=== PATIENT | male | born 1940 | race Caucasian/White ===

== ENCOUNTER → 2017-11-14 | Outpatient (CLI) | payer MEDICARE, OTHER ==
[~2017-11-14] MED LIST: AMLO10TA4 PO; ASPI-1197 PO; CARB200T PO; CARV12.580 PO; CHOL200016 PO; CLOP75TA32 PO; DONE5TAB2 PO; FEXO1TAB5 PO; FLUT16H NASAL; FOLI0.4T2 PO; IRON1CAP30 PO; LOSA100T2 PO; MELA3TAB10 PO; NITR0.4T SL; PRAM0.25 PO; TAMS-1 PO; UBID10CA6 PO
== END | disposition home or self-care (01) ==
LOC: RAH 09:37
PROVIDERS: ATTEND Family Medicine
DX: M50.322 Other cervical disc degeneration at C5-C6 level (principal); M50.323 Other cervical disc degeneration at C6-C7 level; I71.4 Abdominal aortic aneurysm, without rupture; M48.02 Spinal stenosis, cervical region
CPT/HCPCS: 72141; 76775

== ENCOUNTER 2018-11-21 09:35 | Emergency (ER) | payer MEDICARE, OTHER ==
[~2018-11-21 09:35] MED LIST changes: -CHOL200016 PO; +CHOL200059 PO; -DONE5TAB2 PO; +DONE5TAB3 PO
== END 2018-11-21 11:39 | disposition home or self-care (01) ==
LOC: EDH 09:35
DX: S02.82XA Fracture of other specified skull and facial bones, left side, initial encounter for closed fracture (principal); I10 Essential (primary) hypertension; M19.90 Unspecified osteoarthritis, unspecified site; E78.5 Hyperlipidemia, unspecified; I25.10 Atherosclerotic heart disease of native coronary artery without angina pectoris; Z88.6 Allergy status to analgesic agent; Z91.013 Allergy to seafood; Z88.8 Allergy status to other drugs, medicaments and biological substances; Z98.890 Other specified postprocedural states; Z87.891 Personal history of nicotine dependence; W01.0XXA Fall on same level from slipping, tripping and stumbling without subsequent striking against object, initial encounter; Y93.01 Activity, walking, marching and hiking; Y92.89 Other specified places as the place of occurrence of the external cause; Y99.8 Other external cause status
CPT/HCPCS: 70450; 70486; 72125

== ENCOUNTER 2018-12-12 10:43 | Emergency (ER) | payer MEDICARE, OTHER ==
[2018-12-12 11:51] LABS: BASOPHILS % (AUTO) 0.7 % (0.0-5.0); EOSINOPHILS % (AUTO) 1.8 % (0.0-8.0); HEMATOCRIT 39.9 % (42-54); LYMPHOCYTES % (AUTO) 16.1 % (21.0-51.0); MEAN CORPUSCULAR HEMOGLOBIN 31.3 pg (27.0-33.0); MEAN CORPUSCULAR HGB CONC 32.9 g/dL (32.0-36.0); MEAN CORPUSCULAR VOLUME 95.2 fL (79-99); NEUTROPHILS % (AUTO) 71.4 % (40.0-77.0); PLATELET COUNT (AUTO) 204 K/uL (130-400); RED BLOOD CELL COUNT(AUTO) 4.19 MIL/uL (4.50-6.20); RED CELL DISTRIBUTION WIDTH 12.2 % (11.0-15.5); WHITE BLOOD COUNT (AUTO) 6.8 K/uL (4.8-10.8)
[2018-12-12 11:57] LABS: CREATININE 0.8 mg/dL (0.5-1.5); POTASSIUM 3.7 mmol/L (3.5-5.1)
[2018-12-12 12:00] LABS: PARTIAL THROMBOPLASTIN TIME 28.6 SEC (26.3-35.5); PROTHROMBIN TIME 10.5 SEC (9.6-11.6)
[2018-12-12 12:01] LABS: ALBUMIN 3.9 g/dL (3.5-5.0); BILIRUBIN,TOTAL 0.2 mg/dL (0.2-1.0); CRP QUANTITATIVE 6.9 mg/L (0.00-9.0); TOTAL PROTEIN, SERUM 7.6 g/dL (6.0-8.3)
[2018-12-12] MEDS ORDERED: GUAIFENESIN SUGAR-FREE 100 MG/5 ML UDCUP ONE (12:23)
[2018-12-12] MEDS ORDERED: GUAIFENESIN SUGAR-FREE 100 MG/5 ML UDCUP PO SCH (12:30)
[2018-12-12] MEDS ORDERED: CEFDINIR 250MG/5ML 60ML BOTTLE PO SCH (12:30)
[2018-12-12 12:53] LABS: ERYTHROCYTE SEDIMENTATION RATE 12 MM/HR (0-20)
== END 2018-12-12 13:35 | disposition home or self-care (01) ==
LOC: EDH 10:43
DX: S02.30XA Fracture of orbital floor, unspecified side, initial encounter for closed fracture (principal); J01.00 Acute maxillary sinusitis, unspecified; J32.0 Chronic maxillary sinusitis; M19.90 Unspecified osteoarthritis, unspecified site; I25.10 Atherosclerotic heart disease of native coronary artery without angina pectoris; I10 Essential (primary) hypertension; E78.5 Hyperlipidemia, unspecified; Z96.649 Presence of unspecified artificial hip joint; X58.XXXA Exposure to other specified factors, initial encounter; Y93.89 Activity, other specified; Y92.89 Other specified places as the place of occurrence of the external cause; Y99.8 Other external cause status
CPT/HCPCS: 36415; 70450; 70486; 80053; 85025; 85610; 85651; 85730; 86140

== ENCOUNTER 2020-12-12 08:35 | Day surgery (SDC) | payer OTHER ==
[~2020-12-12] VITALS: Ht 177.8 cm; Wt 72.6 kg
[~2020-12-12 08:35] MED LIST changes: -AMLO10TA4 PO; -ASPI-1197 PO; -CARB200T PO; -CARV12.580 PO; +CARV3.12 PO; -CHOL200059 PO; +CLOP75TA14 PO; -CLOP75TA32 PO; +DOCU-116 PO; +DONE10TA8 PO; -DONE5TAB3 PO; -FEXO1TAB5 PO; +FINA5TAB41 PO; -FLUT16H NASAL; -FOLI0.4T2 PO; +FURO20TA6 PO; -IRON1CAP30 PO; +LAMO200T10 PO; -LOSA100T2 PO; -MELA3TAB10 PO; +MEMA10TA11 PO; +MIRT15TA6 PO; -NITR0.4T SL; +PANT40TA55 PO; -PRAM0.25 PO; +PRAV40TA3 PO; +SODIUM CHLORIDE 0.9% 1000ML 1,000 ML IV ONE; -UBID10CA6 PO
[2020-12-12 10:34] VITALS: BP 141/71
[2020-12-12] MEDS ORDERED: PROPOFOL 10 MG/ML 20ML VIAL IV ONE (12:15)
[2020-12-12 12:25] VITALS: BP 109/46
[2020-12-12 12:30] VITALS: BP 123/57
[2020-12-12 12:35] VITALS: BP 129/60
[2020-12-12 12:40] VITALS: BP 127/55
== END 2020-12-12 13:17 | disposition home or self-care (01) ==
LOC: DAH 08:35 → EDSTATUS 12:51 → DAH 13:17
PROVIDERS: ATTEND Internal Medicine Gastroenterology
DX: D50.9 Iron deficiency anemia, unspecified (principal); K63.5 Polyp of colon; K64.8 Other hemorrhoids; K29.70 Gastritis, unspecified, without bleeding; K59.00 Constipation, unspecified; D13.1 Benign neoplasm of stomach; K57.30 Diverticulosis of large intestine without perforation or abscess without bleeding; K55.20 Angiodysplasia of colon without hemorrhage; Z86.010 Personal history of colon polyps; I10 Essential (primary) hypertension; E78.5 Hyperlipidemia, unspecified; M19.90 Unspecified osteoarthritis, unspecified site; F31.9 Bipolar disorder, unspecified; I25.10 Atherosclerotic heart disease of native coronary artery without angina pectoris; Z96.651 Presence of right artificial knee joint; Z98.890 Other specified postprocedural states; Z79.82 Long term (current) use of aspirin; Z79.899 Other long term (current) drug therapy; Z79.01 Long term (current) use of anticoagulants; Z20.828 Contact with and (suspected) exposure to other viral communicable diseases
CPT/HCPCS: 45378; A4215; A4221; A4222; A4223; A4606; A4620; A4663; C9803; J2704; J7030; U0003

== ENCOUNTER 2021-11-28 16:12 | Emergency (ER) | payer OTHER ==
[~2021-11-28] VITALS: Ht 175.3 cm; Wt 81.6 kg
[~2021-11-28 16:12] MED LIST changes: +MIRT-22 PO; -MIRT15TA6 PO; -SODIUM CHLORIDE 0.9% 1000ML 1,000 ML IV ONE
[2021-11-28 21:09] LABS: BASOPHILS % (AUTO) 0.6 % (0.0-5.0); EOSINOPHILS % (AUTO) 6.5 % (0.0-8.0); HEMATOCRIT 37.3 % (42-54); LYMPHOCYTES % (AUTO) 20.9 % (21.0-51.0); MEAN CORPUSCULAR HEMOGLOBIN 29.9 pg (27.0-33.0); MEAN CORPUSCULAR HGB CONC 31.6 g/dL (32.0-36.0); MEAN CORPUSCULAR VOLUME 94.7 fL (79-99); MONOCYTES % (AUTO) 11.2 % (3.0-13.0); NEUTROPHILS % (AUTO) 60.6 % (40.0-77.0); PLATELET COUNT (AUTO) 173 K/uL (130-400); RED BLOOD CELL COUNT(AUTO) 3.94 MIL/uL (4.50-6.20); RED CELL DISTRIBUTION WIDTH 13.4 % (11.0-15.5); WHITE BLOOD COUNT (AUTO) 4.7 K/uL (4.8-10.8)
[2021-11-28 21:34] LABS: ALBUMIN 3.9 g/dL (3.5-5.0); BILIRUBIN,TOTAL 0.2 mg/dL (0.2-1.0); TOTAL PROTEIN, SERUM 7.8 g/dL (6.0-8.3)
[2021-11-28 22:23] VITALS: BP 147/68
[2021-11-28 22:37] LABS: APPEARANCE,URINE Clear (CLEAR); BILIRUBIN,URINE Negative (NEGATIVE); COLOR,URINE Yellow (YELLOW); GLUCOSE, URINE (UA) Negative (NEGATIVE); KETONES,URINE Negative (NEGATIVE); LEUKOCYTE ESTERASE ,URINE Negative (NEGATIVE); NITRATE,URINE Negative (NEGATIVE); OCCULT BLOOD,URINE Negative (NEGATIVE); PH,URINE 5.5 (5.0-8.0); PROTEIN,URINE Negative (NEGATIVE); UROBILINOGEN,URINE 0.2 mg/dL (0.2-1.0)
[2021-11-28 23:17] LABS: INFLUENZA TYPE A NEGATIVE FOR TYPE A (NEG); INFLUENZA TYPE B NEGATIVE FOR TYPE B (NEG)
== END 2021-11-28 23:50 | disposition home or self-care (01) ==
LOC: EDH 16:12
DX: U07.1 COVID-19 (principal); I11.0 Hypertensive heart disease with heart failure; I50.9 Heart failure, unspecified; E11.9 Type 2 diabetes mellitus without complications; J44.9 Chronic obstructive pulmonary disease, unspecified; E78.00 Pure hypercholesterolemia, unspecified; I25.10 Atherosclerotic heart disease of native coronary artery without angina pectoris; F31.9 Bipolar disorder, unspecified; Z98.890 Other specified postprocedural states; Z95.0 Presence of cardiac pacemaker; Z96.659 Presence of unspecified artificial knee joint; Z96.649 Presence of unspecified artificial hip joint; Z88.5 Allergy status to narcotic agent; Z88.8 Allergy status to other drugs, medicaments and biological substances; Z88.1 Allergy status to other antibiotic agents; Z91.013 Allergy to seafood; Z79.899 Other long term (current) drug therapy
CPT/HCPCS: 36415; 71045; 80053; 81003; 82150; 82550; 83690; 84484; 85025; 87635; 87804 ×2; 93005; 99285; C9803

== ENCOUNTER 2022-02-19 15:04 | Inpatient (IN) | payer OTHER ==
[~2022-02-19] VITALS: Ht 170.2 cm; Wt 79.2 kg
[2022-02-19 16:26] LABS: BASOPHILS % (AUTO) 0.6 % (0.0-5.0); EOSINOPHILS % (AUTO) 1.8 % (0.0-8.0); HEMATOCRIT 25.9 % (42-54); LYMPHOCYTES % (AUTO) 9.4 % (21.0-51.0); MEAN CORPUSCULAR HGB CONC 31.7 g/dL (32.0-36.0); MEAN CORPUSCULAR VOLUME 94.9 fL (79-99); MONOCYTES % (AUTO) 10.5 % (3.0-13.0); NEUTROPHILS % (AUTO) 77.4 % (40.0-77.0); PLATELET COUNT (AUTO) 232 K/uL (130-400); RED BLOOD CELL COUNT(AUTO) 2.73 MIL/uL (4.50-6.20); RED CELL DISTRIBUTION WIDTH 16.1 % (11.0-15.5); WHITE BLOOD COUNT (AUTO) 7.9 K/uL (4.8-10.8)
[2022-02-19 16:35] LABS: CREATININE 1.2 mg/dL (0.5-1.5); POTASSIUM 3.9 mmol/L (3.5-5.1)
[2022-02-19 16:42] LABS: ALBUMIN 3.2 g/dL (3.5-5.0); BILIRUBIN,TOTAL 0.5 mg/dL (0.2-1.0); TOTAL PROTEIN, SERUM 6.2 g/dL (6.0-8.3)
[2022-02-19 16:47] LABS: B-TYPE NATRIURETIC PEPTIDE 794 pg/mL (0-100)
[2022-02-19] MEDS ORDERED: ENOXAPARIN SODIUM 80 MG/0.8 ML SQ ONE (17:30)
[2022-02-19] MEDS ORDERED: ASPIRIN 81MG CHEW TAB ONE (17:45)
[2022-02-19] MEDS ORDERED: ASPIRIN 81MG CHEW TAB PO ONE (18:00)
[2022-02-19] MEDS ORDERED: 0.9%NACL 1000ML 1,000 ML IV SCH (20:00)
[2022-02-19] MEDS ORDERED: ONDANSETRON 4MG INJ IV PRN (20:00)
[2022-02-19] MEDS: NITROGLYCERIN 1GM OINT 1 INCH/1GM TD SCH (20:34)
[2022-02-20 01:41] VITALS: BP 125/66
[2022-02-20 03:48] VITALS: BP 124/66
[2022-02-20 04:00] LABS: BASOPHILS % (AUTO) 0.9 % (0.0-5.0); EOSINOPHILS % (AUTO) 3.2 % (0.0-8.0); HEMATOCRIT 24.7 % (42-54); LYMPHOCYTES % (AUTO) 14.6 % (21.0-51.0); MEAN CORPUSCULAR HEMOGLOBIN 29.8 pg (27.0-33.0); MEAN CORPUSCULAR HGB CONC 30.8 g/dL (32.0-36.0); MEAN CORPUSCULAR VOLUME 96.9 fL (79-99); MONOCYTES % (AUTO) 11.8 % (3.0-13.0); NEUTROPHILS % (AUTO) 69.1 % (40.0-77.0); PLATELET COUNT (AUTO) 226 K/uL (130-400); RED BLOOD CELL COUNT(AUTO) 2.55 MIL/uL (4.50-6.20); RED CELL DISTRIBUTION WIDTH 15.9 % (11.0-15.5); WHITE BLOOD COUNT (AUTO) 7.9 K/uL (4.8-10.8)
[2022-02-20 04:11] LABS: INR 1.12 (0.85-1.15); PROTHROMBIN TIME 12.1 SEC (9.6-11.6)
[2022-02-20 04:13] LABS: PARTIAL THROMBOPLASTIN TIME 27.2 SEC (26.3-35.5)
[2022-02-20 04:27] LABS: MAGNESIUM 2.4 mg/dL (1.80-2.40); PHOSPHORUS 4.1 mg/dL (2.5-4.9); POTASSIUM 3.8 mmol/L (3.5-5.1)
[2022-02-20] MEDS: NITROGLYCERIN 1GM OINT 1 INCH/1GM TD SCH ×3 (04:40→20:29)
[2022-02-20 07:00] VITALS: BP 120/68
[2022-02-20] MEDS ORDERED: LACTULOSE 20 GM/30 ML UDCUP PO PRN (08:30)
[2022-02-20] MEDS ORDERED: ENOXAPARIN SODIUM 80 MG/0.8 ML SQ SCH (09:00)
[2022-02-20] MEDS: CLOPIDOGREL 75MG TAB PO SCH (09:31)
[2022-02-20] MEDS: PANTOPRAZOLE 40 MG/VIAL IVP SCH (09:31)
[2022-02-20] MEDS: ASPIRIN 81MG CHEW TAB PO SCH (09:31)
[2022-02-20 11:00] VITALS: BP 99/56
[2022-02-20 16:00] VITALS: BP 103/63
[2022-02-20 19:30] VITALS: BP 108/63
[2022-02-21 00:15] VITALS: BP 104/61
[2022-02-21 04:10] VITALS: BP 116/60
[2022-02-21 04:41] LABS: BASOPHILS % (AUTO) 0.6 % (0.0-5.0); EOSINOPHILS % (AUTO) 3.2 % (0.0-8.0); HEMATOCRIT 25.3 % (42-54); LYMPHOCYTES % (AUTO) 8.1 % (21.0-51.0); MEAN CORPUSCULAR HEMOGLOBIN 29.7 pg (27.0-33.0); MEAN CORPUSCULAR HGB CONC 31.6 g/dL (32.0-36.0); MEAN CORPUSCULAR VOLUME 94.1 fL (79-99); MONOCYTES % (AUTO) 9.5 % (3.0-13.0); NEUTROPHILS % (AUTO) 78.1 % (40.0-77.0); PLATELET COUNT (AUTO) 242 K/uL (130-400); RED BLOOD CELL COUNT(AUTO) 2.69 MIL/uL (4.50-6.20); RED CELL DISTRIBUTION WIDTH 15.5 % (11.0-15.5); WHITE BLOOD COUNT (AUTO) 8.7 K/uL (4.8-10.8)
[2022-02-21] MEDS: NITROGLYCERIN 1GM OINT 1 INCH/1GM TD SCH (05:12)
[2022-02-21 07:38] VITALS: BP 115/69
[2022-02-21] MEDS ORDERED: IRON PO (08:21)
[2022-02-21] MEDS: ASPIRIN 81MG CHEW TAB PO SCH (08:53)
[2022-02-21] MEDS: PANTOPRAZOLE 40 MG/VIAL IVP SCH (08:53)
[2022-02-21] MEDS: CLOPIDOGREL 75MG TAB PO SCH (08:53)
[2022-02-21] MEDS ORDERED: LAMOTRIGINE 100 MG TABLET PO SCH (09:00)
== END 2022-02-21 11:50 | disposition home or self-care (01) | DRG 280 ==
LOC: EDH 15:04 → EDHIP 19:46 → 2AH 02-20 01:25
PROVIDERS: ADMIT Hospitalist; ATTEND Hospitalist
DX: I21.4 Non-ST elevation (NSTEMI) myocardial infarction (principal); I50.33 Acute on chronic diastolic (congestive) heart failure; D64.9 Anemia, unspecified; I11.0 Hypertensive heart disease with heart failure; Z20.822 Contact with and (suspected) exposure to COVID-19; F03.90 Unspecified dementia, unspecified severity, without behavioral disturbance, psychotic disturbance, mood disturbance, and anxiety; Z88.2 Allergy status to sulfonamides; Z88.8 Allergy status to other drugs, medicaments and biological substances; Z96.659 Presence of unspecified artificial knee joint; I25.10 Atherosclerotic heart disease of native coronary artery without angina pectoris; E11.9 Type 2 diabetes mellitus without complications; Z87.891 Personal history of nicotine dependence; I35.0 Nonrheumatic aortic (valve) stenosis; Z95.5 Presence of coronary angioplasty implant and graft
CPT/HCPCS: 36415; 70450; 71045; 80048; 80053; 80061; 82140; 82270; 82728; 83540; 83550; 83735; 83880; 84100; 84443; 84484; 85025; 85610; 85730; 86850; 86900; 86901; 87635; 93005; 93306; 99291; C9113; G0378; J1650; J7030

== ENCOUNTER 2022-03-08 20:28 | Inpatient (IN) | payer OTHER ==
[~2022-03-08] VITALS: Ht 175.3 cm; Wt 78.8 kg
[~2022-03-08 20:28] MED LIST changes: +IRON PO
[2022-03-08 20:48] LABS: BASOPHILS % (AUTO) 0.4 % (0.0-5.0); EOSINOPHILS % (AUTO) 0.7 % (0.0-8.0); HEMATOCRIT 28.8 % (42-54); LYMPHOCYTES % (AUTO) 4.7 % (21.0-51.0); MEAN CORPUSCULAR HEMOGLOBIN 29.3 pg (27.0-33.0); MEAN CORPUSCULAR HGB CONC 30.2 g/dL (32.0-36.0); NEUTROPHILS % (AUTO) 85.7 % (40.0-77.0); PLATELET COUNT (AUTO) 252 K/uL (130-400); RED BLOOD CELL COUNT(AUTO) 2.97 MIL/uL (4.50-6.20); RED CELL DISTRIBUTION WIDTH 19.7 % (11.0-15.5); WHITE BLOOD COUNT (AUTO) 16.4 K/uL (4.8-10.8)
[2022-03-08 21:00] LABS: INR 1.07 (0.85-1.15); PROTHROMBIN TIME 11.6 SEC (9.6-11.6)
[2022-03-08] MEDS ORDERED: PANTOPRAZOLE 40 MG/VIAL IVP ONE (21:00)
[2022-03-08] MEDS ORDERED: FUROSEMIDE 40MG VIAL IV ONE (21:00)
[2022-03-08] MEDS ORDERED: FUROSEMIDE 40MG VIAL ONE (21:06)
[2022-03-08] MEDS ORDERED: ZOSYN 3.375GM+NS 50ML 50 ML ONE (21:07)
[2022-03-08 21:13] LABS: B-TYPE NATRIURETIC PEPTIDE 1470 pg/mL (0-100)
[2022-03-08 21:14] LABS: CREATININE 1.1 mg/dL (0.5-1.5); POTASSIUM 4.1 mmol/L (3.5-5.1)
[2022-03-08 21:19] LABS: ALBUMIN 3.3 g/dL (3.5-5.0); BILIRUBIN,TOTAL 0.3 mg/dL (0.2-1.0); MAGNESIUM 1.8 mg/dL (1.80-2.40); TOTAL PROTEIN, SERUM 6.8 g/dL (6.0-8.3)
[2022-03-08] MEDS ORDERED: ZOSYN 3.375GM +NS 50ML IV SCH (21:30)
[2022-03-08] MEDS ORDERED: ACETAMINOPHEN 325 MG TAB PO PRN (22:30)
[2022-03-08] MEDS ORDERED: ONDANSETRON 4MG INJ IV PRN (22:30)
[2022-03-08] MEDS ORDERED: ASPIRIN 81MG CHEW TAB PO ONE (22:30)
[2022-03-08] MEDS ORDERED: NITROGLYCERIN 0.4 MG SL TAB SL PRN (22:30)
[2022-03-08 22:51] LABS: ABG BASE EXCESS -0.8 mmol/L (-2.0-3.0); ABG HCO3 20.3 mmol/L (21.0-28.0); ABG OXYGEN SATURATION 94.2 % (95.0-99.0); ABG PCO2 25 mmHg (35-48)
[2022-03-09 00:08] LABS: APPEARANCE,URINE CLEAR (CLEAR); BILIRUBIN,URINE NEGATIVE (NEGATIVE); COLOR,URINE YELLOW (YELLOW); GLUCOSE, URINE (UA) NEGATIVE (NEGATIVE); KETONES,URINE NEGATIVE (NEGATIVE); LEUKOCYTE ESTERASE ,URINE NEGATIVE (NEGATIVE); NITRATE,URINE NEGATIVE (NEGATIVE); OCCULT BLOOD,URINE MODERATE (NEGATIVE); PROTEIN,URINE NEGATIVE (NEGATIVE); UROBILINOGEN,URINE 0.2 mg/dL (0.2-1.0)
[2022-03-09 00:32] LABS: BACTERIA,URINE Few /HPF (None Seen); SQUAMOUS EPITHELIAL CELL,UR 0-2 /HPF (0-2); WBC,URINE 0-1 /HPF (0-1)
[2022-03-09 02:40] VITALS: BP 103/62
[2022-03-09] MEDS ORDERED: 0.9%NACL 50ML 50 ML IV ONE ×2 (04:25→20:25)
[2022-03-09] MEDS: ZOSYN 3.375GM+NS 50ML 50 ML IV SCH ×3 (04:35→20:29)
[2022-03-09 06:03] LABS: BASOPHILS % (AUTO) 0.4 % (0.0-5.0); EOSINOPHILS % (AUTO) 0.8 % (0.0-8.0); HEMATOCRIT 27.5 % (42-54); LYMPHOCYTES % (AUTO) 7.8 % (21.0-51.0); MEAN CORPUSCULAR HEMOGLOBIN 28.5 pg (27.0-33.0); MEAN CORPUSCULAR HGB CONC 29.5 g/dL (32.0-36.0); MEAN CORPUSCULAR VOLUME 96.8 fL (79-99); MONOCYTES % (AUTO) 11.3 % (3.0-13.0); NEUTROPHILS % (AUTO) 79.2 % (40.0-77.0); PLATELET COUNT (AUTO) 217 K/uL (130-400); RED BLOOD CELL COUNT(AUTO) 2.84 MIL/uL (4.50-6.20); RED CELL DISTRIBUTION WIDTH 19.9 % (11.0-15.5)
[2022-03-09 06:22] LABS: MAGNESIUM 1.8 mg/dL (1.80-2.40); PHOSPHORUS 4.2 mg/dL (2.5-4.9); POTASSIUM 3.6 mmol/L (3.5-5.1)
[2022-03-09 07:09] VITALS: BP 100/63
[2022-03-09] MEDS ORDERED: FAMOTIDINE 20MG VIAL IV SCH (09:00)
[2022-03-09] MEDS ORDERED: ASPIRIN 81MG CHEW TAB PO SCH (09:00)
[2022-03-09] MEDS ORDERED: POTASSIUM CHLORIDE 20MEQ/100ML 100 ML IV PRN (09:00)
[2022-03-09] MEDS ORDERED: MAGNESIUM 2GM PREMIX 50ML 50 ML IV PRN (09:00)
[2022-03-09] MEDS ORDERED: LAMOTRIGINE 100 MG TABLET PO SCH (09:00)
[2022-03-09] MEDS ORDERED: POTASSIUM CHLORIDE 10% ELIXIR 20 MEQ/15 ML UDCUP PO PRN (09:00)
[2022-03-09] MEDS: FUROSEMIDE 40MG VIAL IVP SCH ×2 (09:51→20:30)
[2022-03-09] MEDS: KCL 20 MEQ ERTAB PO PRN ×2 (09:54→12:16)
[2022-03-09] MEDS: HEPARIN 5,000 UNIT VIAL SQ SCH ×3 (09:56→22:00)
[2022-03-09] MEDS ORDERED: METOPROLOL TARTRATE 25 MG TAB PO SCH ×2 (10:30)
[2022-03-09 12:00] VITALS: BP 103/66
[2022-03-09] MEDS ORDERED: AMIODARONE 900MG VIAL 150 MG in DEXTROSE 5%-WATER 100 ML IV SCH (14:00)
[2022-03-09] MEDS ORDERED: AMIODARONE 900MG VIAL 360 MG in DEXTROSE 5%-WATER 200 ML IV SCH (14:30)
[2022-03-09 15:28] LABS: CREATININE 1.3 mg/dL (0.5-1.5); POTASSIUM 4.2 mmol/L (3.5-5.1)
[2022-03-09 16:00] VITALS: BP 97/56
[2022-03-09] MEDS ORDERED: ROSU20TA31 PO (17:40)
[2022-03-09] MEDS ORDERED: MEMA10TA55 PO (17:40)
[2022-03-09] MEDS ORDERED: METO-408 PO (17:40)
[2022-03-09] MEDS ORDERED: ASPI-1197 PO (17:40)
[2022-03-09] MEDS ORDERED: PANT40TA55 PO (17:40)
[2022-03-09] MEDS ORDERED: SUCR1ORA15 PO (17:40)
[2022-03-09 19:10] VITALS: BP 87/59
[2022-03-09] MEDS ORDERED: AMIODARONE 900MG VIAL 540 MG in DEXTROSE 5%-WATER 300 ML IV SCH (20:30)
[2022-03-09] MEDS ORDERED: SUCRALFATE 1 GM TABLET PO SCH (21:00)
[2022-03-09] MEDS ORDERED: MIRTAZAPINE 15 MG TABLET PO SCH (21:00)
[2022-03-09] MEDS ORDERED: TAMSULOSIN HCL 0.4 MG CAP.ER.24H PO SCH (21:00)
[2022-03-09] MEDS ORDERED: FINASTERIDE 5 MG TABLET PO SCH (21:00)
[2022-03-09] MEDS ORDERED: MEMANTINE HCL 5 MG TABLET PO SCH (21:00)
[2022-03-09] MEDS ORDERED: NON-FORMULARY MEDICATION 1 EACH (Sucralfate 1 GM) PO SCH (21:00)
[2022-03-09] MEDS ORDERED: DOCUSATE SODIUM 100 MG CAP PO SCH (21:00)
[2022-03-09] MEDS ORDERED: NON-FORMULARY MEDICATION 1 EACH (Memantine HCl 10 MG) PO SCH (21:00)
[2022-03-10] MEDS ORDERED: DONEPEZIL HCL 10 MG PO SCH (09:00)
[2022-03-10] MEDS ORDERED: NON-FORMULARY MEDICATION 1 EACH (Rosuvastatin Calcium 20 MG) PO SCH (09:00)
[2022-03-10] MEDS ORDERED: ROSUVASTATIN 20MG PO SCH (09:00)
[2022-03-10] MEDS ORDERED: DONEPEZIL HCL 5 MG TAB PO SCH (09:00)
[2022-03-10] MEDS ORDERED: AMIODARONE 200 MG TABLET PO SCH (14:00)
== END 2022-03-09 23:13 ==
LOC: EDH 20:28 → EDHIP 22:08 → 2DH 03-09 02:37
PROVIDERS: ADMIT Internal Medicine; ATTEND Internal Medicine
DX: I11.0 Hypertensive heart disease with heart failure (principal); I21.A1 Myocardial infarction type 2; I50.33 Acute on chronic diastolic (congestive) heart failure; J96.01 Acute respiratory failure with hypoxia; D64.9 Anemia, unspecified; D72.829 Elevated white blood cell count, unspecified; I25.10 Atherosclerotic heart disease of native coronary artery without angina pectoris; Z88.8 Allergy status to other drugs, medicaments and biological substances; Z88.5 Allergy status to narcotic agent; Z91.013 Allergy to seafood; E78.00 Pure hypercholesterolemia, unspecified; M19.90 Unspecified osteoarthritis, unspecified site; I46.9 Cardiac arrest, cause unspecified; Z95.5 Presence of coronary angioplasty implant and graft; I35.0 Nonrheumatic aortic (valve) stenosis; Z66 Do not resuscitate; J44.9 Chronic obstructive pulmonary disease, unspecified; F03.90 Unspecified dementia, unspecified severity, without behavioral disturbance, psychotic disturbance, mood disturbance, and anxiety; I48.0 Paroxysmal atrial fibrillation; K90.0 Celiac disease; I45.10 Unspecified right bundle-branch block; Z51.5 Encounter for palliative care; G47.30 Sleep apnea, unspecified; I95.9 Hypotension, unspecified; R33.9 Retention of urine, unspecified
CPT/HCPCS: 36415; 36600; 71045; 80048; 80053; 81001; 82803; 83605; 83735; 83880; 84100; 84145; 84484; 85025; 85378; 85610; 85730; 86850; 86900; 86901; 87040; 87804; 93005; 99291; G0378; J0282; J1644; J1940; J2543; J3475; J3490; J7060